=== PATIENT | male | born 1960 | race Caucasian/White ===

== ENCOUNTER 2021-11-12 20:07 | Emergency (ER) | payer MEDICAID, SELFPAY ==
[2021-11-12 20:20] VITALS: BP 149/86; PULSE 98; RESP 18; TEMP 36.8; O2SAT 98; BMI 27.9
--- NOTE | 2021-11-12 20:31 | PC.NURSE ---
after cleaning the blood and hair there is a 3 inch laceration
--- NOTE | 2021-11-12 21:01 | HMH.EDWNDL ---
ED Disposition Clinical Impression: Laceration of scalp Qualifiers: Encounter type: initial encounter Qualified Code(s): S01.01XA - Laceration without foreign body of scalp, initial encounter Scalp contusion Qualifiers: Encounter type: initial encounter Qualified Code(s): S00.03XA - Contusion of scalp, initial encounter Disposition: Home, Self-Care Condition on Discharge: Good Instructions: DI for Laceration Repair Additional Instructions: sutures out 10 days and recheck with pcp Referrals: Randell Bravo MD [Primary Care Provider] - - Critical Care Critical Care Time: No Attestation: On 11/12/21, the high probability of a clinically significant, sudden or life threatening deterioration of the following system(s) required my full and direct attention, intervention and personal management. The time I documented below is in addition to time spent performing reported procedures but includes the following listed in this critical care notation. Medical Decision Making - Medical Records Medical records reviewed: Yes: I reviewed the patient's medical records. - Heath Inquiry Pt receiving controlled substance: No Vital Signs: 11/12/21 20:20 Temperature 98.2 F Temperature Source Oral Pulse Rate [Left] 98 H Respiratory Rate 18 Blood Pressure [Right Arm] 149/86 H Blood Pressure Mean [Right Arm] 107 02 Sat by Pulse Oximetry 98 Oxygen Delivery Method Room Air Wound/Laceration HPI - General Chief Complaint: Wound/Laceration Stated Complaint: AO8/11@1900@HOME LAC TO HEAD Time Seen by Provider: 11/12/21 20:30 Mode of Arrival: Ambulatory Source of Information: Patient, Medical Record Limitations: No Limitations Description of Symptoms (Recalled from ER Triage Doc. by RN): pt has a laceration on the top of his head left side near the front. pt was mowing his yard and ran into a branch with his head - History of Present Illness HPI narrative: lac to lt side of scalp as hit head against tree limb Onset (ago): hour(s) Location: scalp Place: home Patient tetanus UTD: Yes Context: accidental Associated symptoms: none - Related Data Home Medications Medication Instructions Recorded Confirmed albuterol sulfate 90 mcg/actuation INHALATION 75 Days 06/18/17 aerosol inhaler Allergies Allergy/AdvReac Type Severity Reaction Status Date / Time Penicillins [PENICILLINS] Allergy Unknown Unverified 06/18/17 12:11 [facility] History - Hepatitis A Screen Attestation statement:: This patient has been screened for Hepatitis A risk factors. I have reviewed the patient's past medical history: Yes Medical History: Reports:: Asthma Laterality Cases: Bilateral: Tonsillectomy Other Surgeries: Yes: Appendectomy Amputation: No Fractures: No - Social History Smoking Status: Never smoker Alcohol Intake: never Family Hx:: Cancer, Coronary Artery Disease ROS Obtained: Yes All systems reviewed & no additional complaints - Constitutional Constitutional: Denies fever(s) - Eyes Eyes: Denies eye discharge - ENT Ears, Nose, Mouth, and Throat: Denies dizziness - Cardiovascular Cardiovascular: Denies chest pain - Respiratory Respiratory: Denies cough - Gastrointestinal Gastrointestingal: Denies: abdominal pain - Genitourinary Male Genitourinary: Denies hematuria - Musculoskeletal Musculoskeletal: Denies joint pain, Denies neck pain - Integumentary/Breasts Skin/Breast: Reports as per HPI (6 cm scalp lac ) - Neurologic Neurologic: Reports as per HPI, Reports headache(s), Denies seizure-like activity Physical Exam - General General appearance: alert - Head Head exam: normocephalic - Eye Eye exam: Present: PERRL, EOMI. Absent: nystagmus - ENT ENT exam: Present: mucous membranes moist - Neck Neck exam: Present: trachea midline - Respiratory Respiratory exam: Absent: respiratory distress - Cardiovascular Cardiovascular exam: Present: regular rate - Abdominal E
[2021-11-12 21:25] VITALS: BP 141/78; PULSE 87; RESP 18; TEMP 36.8; O2SAT 98
== END 2021-11-12 21:27 | disposition home or self-care (01) ==
PROVIDERS: Emergency Provider Emergency Medicine; PCP Internal Medicine
DX: S01.01XA Laceration without foreign body of scalp, initial encounter (principal); W22.8XXA Striking against or struck by other objects, initial encounter; Y93.H2 Activity, gardening and landscaping; J45.909 Unspecified asthma, uncomplicated
CPT/HCPCS: 12002; 99283

== ENCOUNTER 2023-09-25 18:13 | Emergency (ER) | payer OTHER, SELFPAY ==
[2023-09-25 19:11] VITALS: BP 128/79; PULSE 105; RESP 18; TEMP 37.8; O2SAT 95; BMI 28.0
--- NOTE | 2023-09-25 19:24 | ED_ITS ---
Discharge Plan Disposition Patient Disposition: Home, Self-Care Condition: Good Prescriptions Prescriptions: No Action albuterol sulfate 90 mcg/actuation HFA aerosol inhaler See Rx Instructions .ROUTE .COMPLEX 75 Days Patient Comments: Rx Instructions: see rx instructions metoprolol succinate 50 mg tablet extended release 24 hr 50 mg PO DAILY Patient Comments: TAKE 1 TABLET BY MOUTH DAILY omeprazole 40 mg capsule,delayed release(DR/EC) 40 mg PO DAILY Patient Comments: TAKE 1 CAPSULE BY MOUTH EVERY DAY rosuvastatin 10 mg tablet 10 mg PO DAILY Patient Comments: TAKE 1 TABLET BY MOUTH DAILY Referrals Follow up/Referrals: Randell Bravo MD [Primary Care Provider] - See instructions Activity Restrictions/Add. Instructions Additional Instructions/Restrictions: No sign of a bacterial infection. Likely viral. Viruses can take 7-14 days to run their course. Nasal saline and bulb syringe or nose Sandra to remove nasal drainage to help with nasal congestion. Hard to eat, drink, sleep with nasal congestion so important to keep this cleaned out. Monitor temp. Tylenol or Motrin as needed for pain or fever Encourage fluids, water, Gatorade, Powerade, Pedialyte if /toddler/child Warm salt water gargles Warm fluids Sore throat lozenges Sleep elevated Humidifier/vaporizer Follow-up immediately for new or worsening symptoms or no noticeable improvement over the next 48-72 hours. Clinical Impressions Clinical Impression: Upper respiratory infection Instructions Patient Instructions: DI for Viral Upper Respiratory Infection -- Adult Discharge ED Provider: Macho ([facility])Latanya [facility] HPI General Stated complaint: Fever,weakness Mode of Arrival: Ambulatory Source of Information: Patient Limitations: No Limitations Time Seen by Provider: 09/25/23 19:25 Description of Symptoms (Recalled from Triage Doc. by RN): Pt's symptoms are fever, fast heart rate , [place], and no appetite. HEENT Symptoms (Recalled from RN notes): Yes Resp Symptoms (Recalled from RN notes): No Skin Symptoms (Recalled from RN notes): No MS Symptoms (Recalled from RN notes): No Functional Status (Recalled from RN notes): n/a History of Present Illness Provider Complaint: 63 yr old male presents for c/o fever, fast heart rate , [place], congestion, scratchy throat, fatigue, and no appetite for 3 days. Related Data Home Medications Medication Instructions Recorded Confirmed albuterol sulfate 90 mcg/actuation See Rx Instructions .Route 06/18/17 09/25/23 aerosol inhaler .COMPLEX 75 days metoprolol succinate 50 mg 50 mg PO DAILY 09/25/23 09/25/23 tablet,extended release 24 hr omeprazole 40 mg capsule,delayed 40 mg PO DAILY 09/25/23 09/25/23 release rosuvastatin 10 mg tablet 10 mg PO DAILY 09/25/23 09/25/23 Allergies Allergy/AdvReac Type Severity Reaction Status Date / Time Penicillins [PENICILLINS] Allergy Unknown Verified 09/25/23 19:22 Worker's Comp Is this a Worker's Comp case?: No [facility] Disclaimer: The information contained in this section may have been updated after the patient was seen, as this information can be updated by other users. Social History , [employer]) Smoking Status: Never smoker alcohol intake: never current occupational status: employed Travel in the last 8 weeks: None ROS Obtained: Yes All systems reviewed & no additional complaints except as documented Constitutional Constitutional: Reports system reviewed and no additional complaints, except as documented, Reports as per HPI, Reports fatigue, Reports fever(s), Reports headache(s) and Reports poor appetite Eyes Eyes: Reports system reviewed and no additional complaints, except as documented ENT Ears, Nose, Mouth, and Throat: Reports system reviewed and no additional complaints, except as documented, Reports as per HPI, Reports headache(s), Reports nasal congestion, Reports nasal discharge, Reports post nasal drip and Reports sore throat Cardiovascular Cardiovascular: Reports system reviewed and no additional complaints, except as documented Respiratory Respiratory: Reports system reviewed and no additional complaints, except as documented, Reports as per HPI and Reports cough Gastrointestinal Gastrointestingal: Reports system reviewed and no additional complaints, except as documented Integumentary/Breasts Skin/Breast: Reports system reviewed and no additional complaints, except as documented Neurologic Neurologic: Reports system reviewed and no additional complaints, except as documented and Reports headache(s) Endocrine Endocrine: Reports system reviewed and no additional complaints, except as documented and Reports fatigue Allergic/Immunologic Allergic/Immunologic: Reports system reviewed and no additional complaints, except as documented Physical Exam General General appearance: alert and in no apparent distress Eye Eye exam: Present normal appearance and PERRL ENT ENT exam: Present mucous membranes moist, TM's normal bilaterally and normal external ear exam Expanded ENT Exam Throat exam: Present tonsillar erythema (pharynx) Neck Neck exam: Present normal inspection, full ROM and trachea midline; Absent meningismus or lymphadenopathy Chest Chest inspection: Present normal inspection and symmetric chest wall rise; Absent tenderness Respiratory Respiratory exam: Present normal lung sounds bilaterally; Absent respiratory distress Cardiovascular Cardiovascular exam: Present regular rate and normal rhythm; Absent JVD Extremities Exam Extremities exam: Present normal inspection, full ROM and normal capillary refill; Absent calf tenderness Neurological Exam Neurological exam: Present alert and oriented X3 Psychiatric Psychiatric exam: Present normal affect and normal mood Skin Skin exam: Present warm, dry, intact and normal color Lymphatic Lymphatic Findings: no adenopathy Medical Decision Making Medical Records Medical records reviewed: Yes I reviewed the patient's medical records. Heath Inquiry Pt receiving controlled substance: No Heath was queried for this patient: No Vital Signs: 09/25/23 19:11 Temperature 100.0 F H Temperature Source Oral Pulse Rate [Right Radial] 105 H Respiratory Rate 18 Blood Pressure [Right Arm] 128/79 Blood Pressure Mean [Right Arm] 95 Blood Pressure Source [Right Arm] Automatic Cuff Blood Pressure Position [Right Arm] Sitting 02 Sat by Pulse Oximetry 95 Oxygen Delivery Method Room Air Lab Data Lab results reviewed: Yes I reviewed the patient's lab results.
[2023-09-25 20:06] LABS: UTC Influenza A Antigen Negative (Negative)
[2023-09-25 20:07] LABS: UTC Influenza B Antigen Negative (Negative)
[2023-09-25 20:08] LABS: UTC Strep Screen (Rapid) Negative (Negative)
[2023-09-25 20:32] VITALS: BP 128/79; PULSE 105; RESP 18; TEMP 37.8; O2SAT 96
--- NOTE | 2023-09-27 10:18 | PC.NURSE ---
Reviewed strep confirmation culture is negative. No further action is required.
== END 2023-09-25 20:32 | disposition home or self-care (01) ==
PROVIDERS: Emergency Provider Nurse Practitioner Family; PCP Internal Medicine
DX: R51.9 Headache, unspecified (principal); R50.9 Fever, unspecified; R07.0 Pain in throat; J06.9 Acute upper respiratory infection, unspecified
CPT/HCPCS: 87804; 87880; 99203; 99212; G0463

== ENCOUNTER 2024-05-16 09:24 | Emergency (ER) | payer OTHER, SELFPAY ==
[2024-05-16] VITALS (9 sets, daily range): BP systolic 127–192; BP diastolic 77–97; PULSE 67–90; RESP 11–20; TEMP 36.5–36.8; O2SAT 95–98; BMI 27.1
--- NOTE | 2024-05-16 09:25 | ECG_ITS ---
APPROVED REPORT Exam: Resting ECG HR:85 bpm ECG Measurements Heart Rate 85 AXES MN 192 P 66 QRSd 90 QRS 17 QT 355 T 44 QTc 397 Conclusion SINUS RHYTHM NORMAL ECG Electronically signed by : DELMY PRO, 05/16/2024 15:57:54
--- NOTE | 2024-05-16 09:42 | XR_ITS ---
FINAL REPORT CLINICAL HISTORY: chest pain FINDINGS: PA and lateral views of the chest are obtained. There is no prior exam for comparison. The cardiac and mediastinal silhouettes are within normal limits. Right upper lobe opacity could be atelectasis or pneumonia. The lungs are otherwise clear. There is no pleural effusion, pneumothorax, or acute osseous abnormality. IMPRESSION: Right upper lobe opacity. Recommend radiographic follow-up. Reviewed, Interpreted and Dictated by Kindra Zarate MD Transcribed by Kristen Larkin Authenticated and [facility]
--- NOTE | 2024-05-16 09:45 | ED_ITS ---
Discharge Plan Disposition Patient Disposition: Home, Self-Care Condition: Good Prescriptions Prescriptions: No Action metoprolol succinate 50 mg tablet extended release 24 hr 50 mg PO DAILY Patient Comments: TAKE 1 TABLET BY MOUTH DAILY omeprazole 40 mg capsule,delayed release(DR/EC) 40 mg PO DAILY Patient Comments: TAKE 1 CAPSULE BY MOUTH EVERY DAY rosuvastatin 10 mg tablet 10 mg PO DAILY Patient Comments: TAKE 1 TABLET BY MOUTH DAILY Referrals Follow up/Referrals: Randell Bravo MD [Primary Care Provider] - See instructions Humphrey Canales MD [Staff Physician] - See instructions Activity Restrictions/Add. Instructions Additional Instructions/Restrictions: You were evaluated in the emergency department today. Please follow-up with primary care as well as with cardiology. Continue taking the antibiotics prescribed to you at home. Return to the emergency department for new or worsening symptoms. Clinical Impressions Clinical Impression: Indigestion, Pneumonia Stand Alone Forms Stand Alone Forms: Work/School Release Instructions Patient Instructions: DI for Pneumonia -- Adult, DI for Atypical Chest Pain, DI for Dyspepsia Print Language Print Language: Namibian Discharge ED Provider: Liz Sepulveda [facility] General Chief Complaint: Chest Pain Stated Complaint: chest pain Time Seen by Provider: 05/16/24 09:26 Mode of Arrival: Ambulatory Source of Information: Patient Limitations: No Limitations Description of Symptoms (Recalled from ER Triage Doc. by RN): Patient states that at approx 0730 this morning he began to have what feels like indigestion and then it feels as if his heart is fluttering. States he currently has no pain and that he took ASA 325mg this morning. History of Present Illness HPI narrative: This patient is a 63-year-old male with a history of hypertension, hyperlipidemia, GERD presenting to the emergency department for evaluation with concern for indigestion and palpitations. Patient states that he had been up this morning, had a little bit of banana, and then around 7:30 AM started having a sensation of indigestion deep within his chest. He states that it also felt like his heart was beating out of rhythm and beating faster than normal. He notes that he is now feeling a lot better, but the symptoms were concerned because he has extensive family heart history. He notes that he took aspirin prior to arrival. He takes a daily PPI but has not yet had his other medications today. He currently feels fine with no symptoms. Of note, he was sick over the weekend with a febrile upper respiratory illness, for she was started on steroids by his primary care provider. He denies any current cough, congestion, chest pain, abdominal pain, nausea, vomiting, changes in bowel movements, or other concerns. Related Data Home Medications ?Medication ?Instructions ?Recorded ?Confirmed metoprolol succinate 50 mg 50 mg PO DAILY 09/25/23 05/16/24 tablet,extended release 24 hr omeprazole 40 mg capsule,delayed 40 mg PO DAILY 09/25/23 05/16/24 release rosuvastatin 10 mg tablet 10 mg PO DAILY 09/25/23 05/16/24 Allergies Allergy/AdvReac Type Severity Reaction Status Date / Time Penicillins (PENICILLINS) Allergy Unknown Verified 11/02/23 14:32 [facility] Disclaimer: The information contained in this section may have been updated after the patient was seen, as this information can be updated by other users. Medical History Scalp contusion Upper respiratory infection GERD (gastroesophageal reflux disease) Hyperlipidemia Hypertension Laceration of scalp Surgical History No pertinent past surgical history Family History Family/Other No significant family history Social History Smoking Status: Never smoker alcohol intake: never current occupational status: employed Travel in the last 8 weeks: None Have you lived/traveled outside [place] in past 30 days?: No Contact w/someone who lives/traveled outside US past 30 days?: No Exposure to someone with infectious disease in past 14 days?: No Do you have a fever (greater than 100.4 F or 38 C)?: No Have you tested positive for COVID-19: No Exposed to someone with COVID-19 in past 14 days?: No Do you have a sore throat?: No Do you have a cough?: No Do you have any weakness?: No Do you have any diarrhea?: No Are you experiencing any unusual bleeding?: No Do you have any muscle aches/pain?: No Do you have any abdominal pain?: No Are you experiencing loss of taste or smell?: No Other Medical History Have you received the Flu Vaccine for this season: No Have you received the Pneumonia Vaccine: No ROS Obtained: Yes All systems reviewed & no additional complaints except as documented Physical Exam General General appearance: alert and in no apparent distress Head Head exam: atraumatic and normocephalic Eye Eye exam: Present normal appearance, PERRL and EOMI ENT ENT exam: Present normal exam, normal oropharynx, mucous membranes moist and normal external ear exam Neck Neck exam: Present normal inspection, full ROM and trachea midline; Absent tenderness Chest Chest inspection: Present normal inspection and symmetric chest wall rise; Absent tenderness Respiratory Respiratory exam: Present normal lung sounds bilaterally; Absent respiratory distress, wheezes, stridor or accessory muscle use Cardiovascular Cardiovascular exam: Present regular rate and normal rhythm Abdominal Exam Abdominal exam: Present soft; Absent distention, tenderness or guarding Extremities Exam Extremities exam: Present normal inspection, full ROM and normal capillary refill; Absent tenderness or edema Back Exam Back exam: Present normal inspection and full ROM; Absent tenderness Neurological Exam Neurological exam: Present alert, oriented X3, CN II-XII intact and normal gait; Absent motor sensory deficit Psychiatric Psychiatric exam: Present normal affect and normal mood Skin Skin exam: Present warm and dry HEART Score HEART Score HEART Score assessment performed?: Yes History (anamnesis): Slightly suspicious ECG: Normal Age: 45-65 years Risk factors: 3 or more risk factors Troponin: </= normal limit HEART Score: 3 Critical Care Critical Care Time Critical Care Time: No Medical Decision Making Heath Inquiry Pt receiving controlled substance: No Vital Signs Vital Signs: 05/16/24 09:24 05/16/24 09:30 05/16/24 10:00 Temperature 97.7 F Temperature Source Oral Pulse Rate 79 83 Pulse Rate [Radial] 86 Respiratory Rate 18 16 13 Blood Pressure 151/97 H 150/96 H Blood Pressure [Right Arm] 192/96 H Blood Pressure Mean [Right Arm] 128 Blood Pressure Source [Right Arm] Automatic Cuff Blood Pressure Position Blood Pressure Position [Right Arm] Supine 02 Sat by Pulse Oximetry 98 97 97 Oxygen Delivery Method Room Air Room Air Room Air 05/16/24 10:30 05/16/24 11:00 05/16/24 11:30 Temperature Temperature Source Pulse Rate 90 70 67 Pulse Rate [Radial] Respiratory Rate 14 20 12 Blood Pressure 139/82 127/78 128/83 Blood Pressure [Right Arm] Blood Pressure Mean [Right Arm] Blood Pressure Source [Right Arm] Blood Pressure Position Blood Pressure Position [Right Arm] 02 Sat by Pulse Oximetry 95 95 95 Oxygen Delivery Method Room Air Room Air Room Air 05/16/24 12:00 05/16/24 12:30 05/16/24 13:23 Temperature 98.2 F Temperature Source Oral Pulse Rate 68 67 67 Pulse Rate [Radial] Respiratory Rate 11 L 11 L 18 Blood Pressure 127/77 131/83 129/80 Blood Pressure [Right Arm] Blood Pressure Mean [Right Arm] Blood Pressure Source [Right Arm] Blood Pressure Position Sitting Blood Pressure Position [Right Arm] 02 Sat by Pulse Oximetry 96 96 Oxygen Delivery Method Room Air Room Air Room Air Lab Data Labs: Lab Results 05/16/24 09:27: WBC 6.0, RBC 5.51, Hgb 16.0, Hct 45.8, MCV 83.1, MCH 29.0, MCHC 34.9, RDW 12.2, Plt Count 205, MPV 9.4, Neut % (Auto) 79.2, Lymph % (Auto) 16.6, [place] % (Auto) 3.5, Eos % (Auto) 0.2, Baso % (Auto) 0.3, Neut # (Auto) 4.7, Lymph # (Auto) 1.0, [place] # (Auto) 0.2, Eos # (Auto) 0.0, Baso # (Auto) 0.0, Sodium 135 L, Potassium 4.4, Chloride 97 L, Carbon Dioxide 27, Anion Gap 15.4 H, BUN 17, Creatinine 0.70, Estimated Creat Clear 93, Estimated GFR 114, Est GFR ( Amer) 137, Glucose 241 H, Calcium 9.5, Magnesium 1.7, Total Bilirubin 0.7, AST 47, ALT 56, Alkaline Phosphatase 108, Troponin I < 0.01, Total Protein 7.8, Albumin 5.0, Globulin 2.8, Albumin/Globulin Ratio 1.8, Lipase 91, TSH 2.16, Thyroxine (T4) 10.5, HIV Ag/Ab Combo Qual Negative 05/16/24 12:33: Troponin I < 0.01 05/16/24 09:27 05/16/24 09:27 Response Orders (Tests/Meds): ED MEDICATIONS Discontinued Medications Generic Name Dose Route Start Last Admin Trade Name Freq PRN Reason Stop Dose Admin Belladonna Alkaloids 60 ml 05/16/24 09:43 05/16/24 09:55 Belladonna Alkaloids 60 Ml Ml PO 05/16/24 09:44 60 ml ONCE ONE Administration Pantoprazole Sodium 40 mg 05/16/24 09:43 05/16/24 09:55 Pantoprazole 40mg Tablet PO 05/16/24 09:44 40 mg ONCE ONE Administration ORDERS Category Date Time Status CXR 2 view (NOT portable) [XR chest 2V] Stat Exams 05/16/24 09:42 Completed Complete Blood Count Auto Diff Stat Lab 05/16/24 09:27 Completed Comprehensive Metabolic Panel Stat Lab 05/16/24 09:27 Completed HIV Combo Stat Lab 05/16/24 09:27 Completed Hepatitis C Ab Qual. W/ RFX Stat Lab 05/16/24 09:27 Received Lipase Stat Lab 05/16/24 09:27 Completed Magnesium Stat Lab 05/16/24 09:27 Completed T4 (Thyroxine) Stat Lab 05/16/24 09:27 Completed TSH [Thyroid Stimulating Hormone] Stat Lab 05/16/24 09:27 Completed Trop I [Troponin I] Stat Lab 05/16/24 09:27 Completed Troponin I Q3H Lab 05/16/24 12:33 Completed ECG Data Tracing #1: Attestation: I reviewed this ECG and interpreted as documented below: ECG Narrative: Normal sinus rhythm with a ventricular rate of [address] changes concerning for ischemia. Normal intervals. ECG initial impression date: 05/16/24 ECG initial impression time: 09:28 MDM Narrative Medical Decision Narrative: In summary, this patient is a 63-year-old male presenting to the Emergency Department for evaluation of indigestion and palpitations. Differential diagnoses considered include but are not limited to ACS, dysrhythmia, GERD, PVCs, pancreatitis. Ruling out the most morbid conditions drove assessment. It should be noted patient's history includes hypertension, hyperlipidemia, GERD which may or may not be at goal therapy. This complicates all aspects of care by increasing patient's risk for morbidity. On exam, the patient is lying in bed in no acute distress with no current symptoms at this time. He took aspirin prior to arrival. Vitals are normal on cardiac telemetry with exception of mild hypertension. Workup included CBC, CMP, lipase, troponin, chest x-ray, EKG. Patient was given GI cocktail to assess for symptomatic improvement. EKG obtained is reassuring. I independently interpreted chest x-ray prior to the radiologist read and noted right upper lobe pneumonia, no pneumothorax. Please see their read for final interpretation. He is already on antibiotics for pneumonia outpatient (doxycycline). labs were obtained that demonstrated reassuring CBC with no significant leukocytosis, anemia, or thrombocytopenia. Chemistry is reassuring with normal electrolytes, kidney function, liver enzymes. Lipase negative. Thyroid studies reassuring. Initial troponin negative. On reassessment, patient is resting comfortably in bed in no acute distress with reassuring vital signs on cardiac telemetry. Given symptoms started this morning acutely, I feel we should obtain a second troponin to further evaluate for acute cardiac ischemia. At 1020, patient was placed in ED observation status pending second troponin to determine whether or not the patient would be appropriate for discharge versus admission. The patient was provided serial reevaluations and cardiac monitoring while awaiting ultimate disposition. On multiple subsequent reassessments, the patient is resting comfortably with reassuring vital signs and cardiac telemetry. Second troponin resulted and is also negative. Given reassuring workup and exam, it is felt that the patient is appropriate for discharge at 1320. Total ED observation time was 3 hours. Patient was given instructions for close follow-up with primary care as well as with cardiology. Strict return precautions were given. I had a [id number] visit with the patient when providing discharge instructions. The total time involved in discharging this patient was less than 30 minutes.
[2024-05-16 09:47] LABS: Basophils % 0.3 % (0.1-2.0); Eosinophils % 0.2 % (0.1-12.0); Hematocrit 45.8 % (42.0-52.0); Lymphocytes % 16.6 % (10-50); Mean Corpuscular HGB Conc 34.9 g/dL (31.8-35.4); Mean Corpuscular Volume 83.1 fl (80-94); Mean Platelet Volume 9.4 fl (7.4-10.4); Monocytes # 0.2 K/mm3 (0.1-1.0); Monocytes % 3.5 % (1.7-9.3); Neutrophils # 4.7 K/mm3 (1.8-7.8); Neutrophils % 79.2 % (37.0-80.0); Platelet Count 205 K/mm3 (142-424); Red Blood Count 5.51 M/mm3 (4.60-6.20); Red Cell Distribution Width 12.2 % (11.5-17.5)
--- NOTE | 2024-05-16 09:49 | PC.NURSE ---
pt to scan via wheelchair
--- NOTE | 2024-05-16 09:50 | PC.NURSE ---
pt ambulatory to bathroom
--- NOTE | 2024-05-16 09:54 | PC.NURSE ---
pt ambulatory back to room from scan
[2024-05-16 09:55] LABS: Alanine Aminotransferase 56 U/L (12-78); Albumin/Globulin Ratio 1.8 (1.1-1.8); Alkaline Phosphatase 108 U/L (38-126); Anion Gap 15.4 mEq/L (5-15); Aspartate Amino Transferase 47 U/L (17-59); Bilirubin,Total 0.7 mg/dl (0.2-1.3); Blood Urea Nitrogen 17 mg/dl (9-20); Calcium 9.5 mg/dl (8.4-10.2); Carbon Dioxide 27 mmol/L (22.0-30.0); Chloride 97 mmol/L (98-107); Creatinine Clearance Estimated 93 mL/min (50-200); Estimated Glomerular Filt Rate 114 ml/min (>60); GFR (African American) 137 ML/MIN (>60); Globulin 2.8 g/dL (1.3-3.2); Glucose 241 mg/dl (74-100); Lipase 91 U/L (23-300); Magnesium 1.7 mg/dl (1.6-2.3); Potassium 4.4 mmoL/L (3.5-5.1); Sodium 135 mmol/L (136-145); Total Protein,Serum 7.8 g/dl (6.3-8.2)
[2024-05-16] MEDS: PANTOPRAZOLE 40MG TABLET 40 MG PO (09:55)
[2024-05-16] MEDS: BELLADONNA ALKALOIDS 60 ML ML PO (09:55)
[2024-05-16 10:12] LABS: T4 (Thyroxine) 10.5 ug/dl (5.53-11.0)
[2024-05-16 10:19] LABS: Troponin I < 0.01 ng/ml (0.00-0.034)
[2024-05-16 10:26] LABS: Thyroid Stimulating Hormone 2.16 uIU/mL (0.465-4.68)
[2024-05-16 10:31] LABS: HIV Combo NEGATIVE (Negative)
--- NOTE | 2024-05-16 11:57 | PC.NURSE ---
ROUNDED ON THE PT. THE PT VOICES THAT HE DOES NOT NEED ANYTHING AT THIS TIME. CALL LIGHT IS WITHIN REACH OF THE PT. DAUGHTER IS PRESENT AT THE BEDSIDE.
--- NOTE | 2024-05-16 12:35 | PC.NURSE ---
REPEAT TROP SENT, LAB NOTIFIED
[2024-05-16 13:06] LABS: Troponin I < 0.01 ng/ml (0.00-0.034)
[2024-05-16 15:52] LABS: Hepatitis C Ab Qual. W/ RFX NEGATIVE (Negative)
== END 2024-05-16 13:28 | disposition home or self-care (01) ==
PROVIDERS: Emergency Provider Emergency Medicine; PCP Internal Medicine
DX: J18.9 Pneumonia, unspecified organism (principal); K30 Functional dyspepsia; R00.2 Palpitations; R07.9 Chest pain, unspecified
CPT/HCPCS: 71046; 80053; 83690; 83735; 84436; 84443; 84484; 85025; 86803; 87389; 93005; 99284